=== PATIENT | female | born 1945 | race Caucasian/White ===

== ENCOUNTER 2017-12-14 13:05 | Emergency (ER) | payer MEDICARE, OTHER ==
[2017-12-14 13:16] VITALS: BP 131/68
[2017-12-14] MEDS: DIPH,PERTUSS(ACELL),TET VAC/PF 0.5 ML DISP.SYRIN IM ONE (13:33)
[2017-12-14] MEDS ORDERED: NEOMYCIN/BACITRACIN/POLYMYXINB 1 EACH OINT.PACK TP ONE (14:09)
--- NOTE | 2017-12-14 14:29 | ED Physician Documentation ---
Lower Extremity Injury - HISTORIAN Historian: patient, spouse - HPI Stated Complaint: TOE Chief Complaint: Foot Injury Additional Information: Jammed tight foot into a wooden wall when she fell on stair of [facility] just prior to arrival. Injured 1st toe and it won't stop bleeding. Denies other injury. Unknown last tetanus. No modifying factors or other associated signs. - ROS CONST: no problems - PAST HX Past History: other (breast cancer, hypothyroid) Allergies/Adverse Reactions: Allergies Allergy/AdvReac Type Severity Reaction Status Date / Time Penicillins Allergy Verified 12/14/17 13:29 tetracycline Allergy Verified 12/14/17 13:29 Home Medications: Ambulatory Orders Medication Instructions Recorded Cephalexin [Keflex] 500 mg PO Q6H #40 capsule 12/14/17 Citalopram Hydrobromide 10 mg D 12/14/17 [Citalopram HBr] Cyclobenzaprine HCl 10 mg TID 12/14/17 Hydrocodone/Acetaminophen [[place] 1 tab PO Q4H PRN #15 12/14/17 5-325 Tablet] Levothyroxine Sodium [Synthroid] 88 mcg D 12/14/17 - SOCIAL HX Smoking History: non-smoker - FAMILY HX Family History: no significant history - VITAL SIGNS Vital Signs: Vital Signs Temp Pulse Resp BP Pulse Ox 97.3 F L 82 20 131/68 98 12/14/17 13:45 12/14/17 13:45 12/14/17 13:45 12/14/17 13:45 12/14/17 13:45 - REVIEWED ASSESSMENTS Nursing Assessment Reviewed: Yes Vitals Reviewed: Yes ED Results Lab/Radiology - Orders Orders: ED Orders Category Date Time Status Apply occlusive dressing D Care 12/14/17 14:09 Ordered Pb Tape Toes 1T Care 12/14/17 14:09 Ordered Post Op Shoe 1T Care 12/14/17 14:09 Ordered FOOT 3 VIEWS OR MORE [RAD] Stat Exams 12/14/17 Ordered Diph,Pertuss(Acell),Tet Vac/Pf [Adacel] Med 12/14/17 13:18 Discontinued 0.5 ml IM .ONCE ONE Neomycin/Bacitracin/Polymyxinb [Triple Antibiotic Med 12/14/17 14:09 Once Ointment] 1 each TP NOW ONE Lower Extremities Injury Phy - Physical Exam General Appearance: alert, mild distress Legs: bilateral: normal inspection, no evidence of injury Knees: bilateral: normal inspection, no evidence of injury Ankle: bilateral: normal inspection, no evidence of injury Foot: right foot: nail injury (oozing blood from beneath the nail. Purple ecchymosis dorsal surface of toe), swelling, left foot: normal inspection, no evidence of injury Gait: limited by pain Neuro/Vascular/Tendon: no vascular compromise, motor nml, sensation nml Head/ENT: nml inspection Neck/Back: nml inspection Resp/CVS: no resp. distress Discharge Clincal Impression: Fracture of toe of right foot Qualifiers: Encounter type: initial encounter Toe: great toe Fracture type: open Phalanx: distal Fracture alignment: nondisplaced Qualified Code(s): S92.424B - Nondisplaced fracture of distal phalanx of right great toe, initial encounter for open fracture Prescriptions: Cephalexin [Keflex] 500 mg PO Q6H #40 capsule Hydrocodone/Acetaminophen [[place] 5-325 Tablet] 1 tab PO Q4H PRN #15 PRN Reason: Pain Referrals: Primary Doctor,No [Primary Care Provider] - 2 Days Condition: Good Disposition: 01 HOME, SELF-CARE Decision to Admit: NO Decision Time: 14:30
--- NOTE | 2017-12-14 18:51 | Diagnostic Imaging Report ---
EARL WILSON [facility] [id number] [facility] [address] [address] Report Submission Date: Dec 14, 2017 2:07:17 PM CDT Patient Study Name: HAWA ZARAGOZA Date: Dec 14, 2017 1:25:26 PM CDT Modality Type: DX Gender: F Description: LOWER EXTREMITY : 49 Institution: [facility] Physician: EARL WILSON Examination: Plain film right foot History: RT FOOT, PAIN IN RT FOOT AFTER JAMMING 1ST DIGIT/FOOT ON WO[employer]EN STAIR TODAY (Hx) Findings: 3 views of the right foot demonstrates osteopenia. Mild articular degenerative spurring. Questionable cortical lucency involving the tuft region of the 1st digit. No other gross cortical abnormalities. Calcaneal spur. No soft tissue swelling. No joint effusion. Impression: Osteopenia and mild degenerative changes. Possible tuft fracture 1st digit. Correlate with point of discomfort/injury. Electronically signed on Dec 14, 2017 2:07:17 PM CDT by: Sadiq NOVA
== END 2017-12-14 14:30 | disposition home or self-care (01) ==
LOC: ED 13:05
DX: S92.424B Nondisplaced fracture of distal phalanx of right great toe, initial encounter for open fracture (principal); W19.XXXA Unspecified fall, initial encounter; Y92.009 Unspecified place in unspecified non-institutional (private) residence as the place of occurrence of the external cause; Y93.9 Activity, unspecified; Y99.9 Unspecified external cause status
CPT/HCPCS: 73630; 90471; 90715; 99283